=== PATIENT | female | born 1955 | race African-American/Black ===

== ENCOUNTER 2019-11-25 14:15 | Inpatient (IN) | payer MEDICARE, MEDICAID ==
[~2019-11-25] VITALS: Ht 165.1 cm; Wt 64.4 kg
[2019-11-25] MEDS ORDERED: FAMO20TA8 PO (14:22)
[2019-11-25] MEDS ORDERED: AMLO10TA80 MT (14:22)
[2019-11-25] MEDS ORDERED: LIDOCAINE 5% PATCH TOP STA (14:58)
[2019-11-25] MEDS ORDERED: ACETAMINOPHEN 325MG TABLET PO STA (14:58)
[2019-11-25 15:42] LABS: CHLORIDE 107 mEq/L (98-107)
[2019-11-25 15:45] LABS: BASOPHILS % 1.1 % (0.0-2.0); EOSINOPHILS % 0.7 % (0.0-5.0); HEMOGLOBIN. 11.9 g/dL (12.0-16.0); LYMPHOCYTES % 39.4 % (20.0-50.0); MEAN CORPUSCULAR VOLUME 90.9 fL (81.0-99.0); MEAN PLATELET VOLUME 6.9 fl (7.4-10.4); MONOCYTES % 3.2 % (2.0-8.0); NEUTROPHILS % 55.6 % (40.0-76.0); PLATELET 571 x1000/uL (130-400); RED BLOOD CELL COUNT 3.85 mill/uL (4.2-5.4); RED CELL DISTRIBUTION WIDTH 14.8 % (11.6-14.6)
[2019-11-25 16:51] LABS: CLARITY URINE CLOUDY (CLEAR); COLOR URINE YELLOW (YELLOW); KETONES URINE NEGATIVE (NEGATIVE); LEUKOCYTE ESTERASE URINE 2+ (NEGATIVE); NITRITE URINE POSITIVE (NEGATIVE); OCCULT BLOOD URINE TRACE (NEGATIVE); PROTEIN URINE NEGATIVE (NEGATIVE); SPECIFIC GRAVITY URINE 1.018 (1.005-1.030); UROBILINOGEN URINE 0.2 E.U./dL (0.2-1.0)
[2019-11-25] MEDS ORDERED: CEFTRIAXONE 2 G PREMIX 50 ML IV ONE (17:15)
[2019-11-25 21:40] VITALS: BP 173/97
[2019-11-25] MEDS ORDERED: DEXTROSE 50% WATER 50ML SYRINGE IV PRN (22:30)
[2019-11-25] MEDS: AMLODIPINE 10MG TABLET PO SCH (23:07)
[2019-11-25] MEDS: LISINOPRIL 20MG TABLET PO SCH (23:08)
[2019-11-25] MEDS: ACETAMINOPHEN 325MG TABLET PO PRN (23:08)
[2019-11-26] VITALS: BP 173/97
[2019-11-26 04:00] VITALS: BP 117/62
[2019-11-26] MEDS: ACETAMINOPHEN 325MG TABLET PO PRN ×2 (05:18→21:46)
[2019-11-26 06:47] LABS: HEMOGLOBIN 11.9 g/dL (12.0-16.0); MEAN CORPUSCULAR HEMOGLOBIN 31.5 pg (28.0-32.0); MEAN CORPUSCULAR VOLUME 92.8 fL (81.0-99.0); PLATELET 461 x1000/uL (130-400); RED BLOOD CELL COUNT 3.77 mill/uL (4.2-5.4); RED CELL DISTRIBUTION WIDTH 14.5 % (11.6-14.6)
[2019-11-26] MEDS: BLOOD SUGAR DIAGNOSTIC STRIP TEST SCH ×4 (06:48→21:36)
[2019-11-26 06:58] LABS: CHLORIDE 108 mEq/L (98-107)
[2019-11-26 07:07] LABS: LDL CHOLESTEROL 104 mg/dL (5-100)
[2019-11-26 07:10] LABS: HDL CHOLESTEROL 36 mg/dL (40-59)
[2019-11-26 08:00] VITALS: BP 157/81
[2019-11-26] MEDS: AMLODIPINE 10MG TABLET PO SCH (08:38)
[2019-11-26] MEDS: LISINOPRIL 20MG TABLET PO SCH (08:38)
[2019-11-26] MEDS: ENOXAPARIN 40MG/0.4ML SYR SUBCUT SCH (08:38)
[2019-11-26] MEDS: INSULIN LISPRO 100 UNITS/ML SUBCUT SCH ×4 (08:43→21:47)
[2019-11-26] MEDS ORDERED: INSULIN GLARGINE UD 100 UNITS/ML SYR SUBCUT SCH (09:00)
[2019-11-26] MEDS ORDERED: CEFTRIAXONE SODIUM 1 G/VIAL IM ONE (09:00)
[2019-11-26] MEDS: FAMOTIDINE 20MG/2ML VIAL IV SCH ×2 (11:01→17:53)
[2019-11-26] MEDS: INSULIN GLARGINE UD 100 UNITS/ML SYR SUBCUT SCH ×2 (11:15→22:41)
[2019-11-26 12:00] VITALS: BP 110/65
[2019-11-26] MEDS: CEFTRIAXONE 1 G PREMIX 50 ML IV SCH (17:53)
[2019-11-26 20:00] VITALS: BP 128/77
[2019-11-26] MEDS: ATORVASTATIN CALCIUM 20MG TABLET PO SCH (21:46)
[2019-11-27] VITALS: BP 108/81
[2019-11-27 04:00] VITALS: BP 148/85
[2019-11-27] MEDS: ACETAMINOPHEN 325MG TABLET PO PRN ×2 (04:46→21:02)
[2019-11-27] MEDS: BLOOD SUGAR DIAGNOSTIC STRIP TEST SCH ×4 (06:32→21:01)
[2019-11-27 08:00] VITALS: BP 132/74
[2019-11-27] MEDS: ENOXAPARIN 40MG/0.4ML SYR SUBCUT SCH (08:34)
[2019-11-27] MEDS: FAMOTIDINE 20MG/2ML VIAL IV SCH ×2 (08:35→18:07)
[2019-11-27] MEDS: LISINOPRIL 20MG TABLET PO SCH (08:37)
[2019-11-27] MEDS: AMLODIPINE 10MG TABLET PO SCH (08:37)
[2019-11-27] MEDS: INSULIN LISPRO 100 UNITS/ML SUBCUT SCH ×4 (08:48→22:10)
[2019-11-27] MEDS: INSULIN GLARGINE UD 100 UNITS/ML SYR SUBCUT SCH ×2 (09:57→22:09)
[2019-11-27 12:00] VITALS: BP 111/66
[2019-11-27 16:00] VITALS: BP 116/71
[2019-11-27] MEDS: CEFTRIAXONE 1 G PREMIX 50 ML IV SCH (18:07)
[2019-11-27] MEDS ORDERED: ATOR20TA PO (18:36)
[2019-11-27] MEDS ORDERED: INSLIS SUBCUT (18:36)
[2019-11-27] MEDS ORDERED: LISI-604 PO (18:36)
[2019-11-27] MEDS ORDERED: LANTUSUD SUBCUT (18:36)
[2019-11-27] MEDS ORDERED: CEPH-569 MT (18:36)
[2019-11-27 20:00] VITALS: BP 125/65
[2019-11-27] MEDS: ATORVASTATIN CALCIUM 20MG TABLET PO SCH (21:01)
[2019-11-28] VITALS: BP 134/78
[2019-11-28 04:00] VITALS: BP 126/74
[2019-11-28] MEDS: BLOOD SUGAR DIAGNOSTIC STRIP TEST SCH ×4 (07:45→21:36)
[2019-11-28 08:00] VITALS: BP 123/73
[2019-11-28] MEDS: LISINOPRIL 20MG TABLET PO SCH (08:29)
[2019-11-28] MEDS: FAMOTIDINE 20MG/2ML VIAL IV SCH ×2 (08:29→17:00)
[2019-11-28] MEDS: AMLODIPINE 10MG TABLET PO SCH (08:29)
[2019-11-28] MEDS: ENOXAPARIN 40MG/0.4ML SYR SUBCUT SCH (08:29)
[2019-11-28] MEDS: INSULIN LISPRO 100 UNITS/ML SUBCUT SCH ×4 (08:38→21:44)
[2019-11-28] MEDS: ACETAMINOPHEN 325MG TABLET PO PRN (11:08)
[2019-11-28] MEDS: INSULIN GLARGINE UD 100 UNITS/ML SYR SUBCUT SCH ×2 (11:21→21:44)
[2019-11-28 12:00] VITALS: BP 138/78
[2019-11-28] MEDS: CEFTRIAXONE 1 G PREMIX 50 ML IV SCH (17:09)
[2019-11-28] MEDS: ATORVASTATIN CALCIUM 20MG TABLET PO SCH (21:23)
[2019-11-29 04:00] VITALS: BP 120/75
[2019-11-29] MEDS: ACETAMINOPHEN 325MG TABLET PO PRN (04:09)
[2019-11-29] MEDS: BLOOD SUGAR DIAGNOSTIC STRIP TEST SCH ×3 (06:20→17:20)
[2019-11-29] MEDS: INSULIN LISPRO 100 UNITS/ML SUBCUT SCH ×3 (07:50→17:22)
[2019-11-29] MEDS: FAMOTIDINE 20MG/2ML VIAL IV SCH ×2 (09:00→17:00)
[2019-11-29] MEDS: LISINOPRIL 20MG TABLET PO SCH (09:00)
[2019-11-29] MEDS: AMLODIPINE 10MG TABLET PO SCH (09:00)
[2019-11-29] MEDS: ENOXAPARIN 40MG/0.4ML SYR SUBCUT SCH (09:00)
[2019-11-29] MEDS: INSULIN GLARGINE UD 100 UNITS/ML SYR SUBCUT SCH (10:00)
[2019-11-29 16:00] VITALS: BP 125/82
[2019-11-29] MEDS: CEFTRIAXONE 1 G PREMIX 50 ML IV SCH (17:22)
[2019-11-29 19:08] VITALS: BP 130/72
== END 2019-11-29 19:32 | DRG 463 ==
LOC: ER 14:15 → EDBEDREQ 17:18 → 6EST 19:00 → EDBEDREQ 19:06 → EDBEDREQTM 19:06 → ENRESERV 20:11
PROVIDERS: ADMIT Internal Medicine; ATTEND Internal Medicine
DX: N10 Acute pyelonephritis (principal); M54.5 Low back pain; I10 Essential (primary) hypertension; Z20.828 Contact with and (suspected) exposure to other viral communicable diseases; E03.9 Hypothyroidism, unspecified; Z90.49 Acquired absence of other specified parts of digestive tract; Z68.23 Body mass index [BMI] 23.0-23.9, adult; E11.9 Type 2 diabetes mellitus without complications; E44.0 Moderate protein-calorie malnutrition
CPT/HCPCS: 36415; 71045; 74176; 80048; 80053; 80061; 81003; 82962; 83036; 83880; 83970; 84484; 85025; 85027; 87077; 87186; 93005; 96365; 99285; J0696; J1650; J1815; J3490; U0003-CS

== ENCOUNTER 2019-12-08 18:54 | Inpatient (IN) | payer MEDICARE, MEDICAID ==
[~2019-12-08] VITALS: Ht 165.1 cm; Wt 63.5 kg
[~2019-12-08 18:54] MED LIST: AMLO10TA80 MT; ATOR20TA PO; CEPH-569 MT; FAMO20TA8 PO; INSLIS SUBCUT; LANTUSUD SUBCUT; LISI-604 PO
[2019-12-08] MEDS ORDERED: NITROGLYCERIN 0.4MG TABLET SL SL PRN (19:45)
[2019-12-08] MEDS ORDERED: ASPIRIN 81MG TABLET PO ONE (19:45)
[2019-12-08] MEDS ORDERED: ACETAMINOPHEN WITH CODEINE 300/30MG TABLET PO ONE (22:15)
[2019-12-09 01:22] LABS: BASOPHILS % 0.8 % (0.0-2.0); EOSINOPHILS % 1.6 % (0.0-5.0); HEMATOCRIT. 36.6 % (36.0-48.0); HEMOGLOBIN. 12.3 g/dL (12.0-16.0); LYMPHOCYTES % 43.8 % (20.0-50.0); MEAN CORPUSCULAR HEMOGLOBIN 31.1 pg (28.0-32.0); MEAN PLATELET VOLUME 7.7 fl (7.4-10.4); MONOCYTES % 4.3 % (2.0-8.0); NEUTROPHILS % 49.5 % (40.0-76.0); PLATELET 284 x1000/uL (130-400); RED BLOOD CELL COUNT 3.94 mill/uL (4.2-5.4); RED CELL DISTRIBUTION WIDTH 14.7 % (11.6-14.6)
[2019-12-09 01:30] LABS: CHLORIDE 103 mEq/L (98-107)
[2019-12-09] MEDS ORDERED: LORAZEPAM 1MG TABLET PO ONE (02:00)
[2019-12-09 04:47] VITALS: BP 146/70
[2019-12-09] MEDS ORDERED: CLONIDINE 0.1MG TABLET PO PRN (05:45)
[2019-12-09] MEDS ORDERED: ONDANSETRON HCL 4MG/2ML INJ IV PRN (05:45)
[2019-12-09] MEDS ORDERED: DIPHENHYDRAMINE 50MG/ML VIAL IV PRN (05:45)
[2019-12-09] MEDS ORDERED: TOPUD PO (05:45)
[2019-12-09] MEDS ORDERED: MAGNESIUM/ALUMINUM HYDROXIDE/SIMETHICONE 30ML UDC PO PRN (05:45)
[2019-12-09] MEDS ORDERED: DEXT 5%/0.9% NACL 1,000 ML IV ONE (05:45)
[2019-12-09] MEDS ORDERED: IBUP100T53 PO (05:47)
[2019-12-09] MEDS ORDERED: POLY15DR31 EACHEYE (05:50)
[2019-12-09] MEDS ORDERED: DIPH25CA83 PO (05:51)
[2019-12-09] MEDS ORDERED: MULT9LIQ6 PO (05:53)
[2019-12-09] MEDS ORDERED: DEXTROSE 50% WATER 50ML SYRINGE IV PRN (06:00)
[2019-12-09] MEDS: BLOOD SUGAR DIAGNOSTIC STRIP TEST SCH ×4 (06:23→21:00)
[2019-12-09] MEDS: PANTOPRAZOLE 40MG DR TABLET PO SCH (07:10)
[2019-12-09] MEDS: INSULIN LISPRO 100 UNITS/ML SUBCUT SCH ×4 (07:28→20:58)
[2019-12-09 08:00] VITALS: BP 118/91
[2019-12-09] MEDS: ENOXAPARIN 40MG/0.4ML SYR SUBCUT SCH (08:00)
[2019-12-09] MEDS ORDERED: NA PHOS,M-B/NA PHOS,DI-BA ENEMA 118ML PR PRN (08:00)
[2019-12-09] MEDS: ACETAMINOPHEN 325MG TABLET PO PRN ×3 (09:35→22:44)
[2019-12-09 12:00] VITALS: BP 119/69
[2019-12-09] MEDS: LISINOPRIL 20MG TABLET PO SCH (14:15)
[2019-12-09 16:00] VITALS: BP 103/54
[2019-12-09] MEDS: ASPIRIN 81MG TABLET PO SCH (17:50)
[2019-12-09] MEDS: DOCUSATE SODIUM 100MG CAPSULE PO PRN (19:29)
[2019-12-09 20:00] VITALS: BP 122/75
[2019-12-09] MEDS: ATORVASTATIN CALCIUM 20MG TABLET PO SCH (20:57)
[2019-12-09] MEDS: INSULIN GLARGINE UD 100 UNITS/ML SYR SUBCUT SCH (22:36)
[2019-12-10] VITALS: BP 136/74
[2019-12-10] MEDS ORDERED: MORPHINE SULFATE 4 MG/ML CPJ (NOT FOR IM USE) IV PRN (01:00)
[2019-12-10] MEDS: MORPHINE SULFATE 2 MG/ML CPJ (NOT FOR IM USE) IV PRN ×2 (01:19→13:46)
[2019-12-10 04:00] VITALS: BP 137/67
[2019-12-10] MEDS: PANTOPRAZOLE 40MG DR TABLET PO SCH (06:14)
[2019-12-10] MEDS: BLOOD SUGAR DIAGNOSTIC STRIP TEST SCH ×4 (06:20→21:13)
[2019-12-10] MEDS: INSULIN LISPRO 100 UNITS/ML SUBCUT SCH ×4 (06:25→21:18)
[2019-12-10 08:00] VITALS: BP 137/100
[2019-12-10] MEDS: LISINOPRIL 20MG TABLET PO SCH (10:20)
[2019-12-10] MEDS: ASPIRIN 81MG TABLET PO SCH (10:21)
[2019-12-10] MEDS: AMLODIPINE 10MG TABLET PO SCH (10:21)
[2019-12-10] MEDS: ENOXAPARIN 40MG/0.4ML SYR SUBCUT SCH (10:21)
[2019-12-10] MEDS: INSULIN GLARGINE UD 100 UNITS/ML SYR SUBCUT SCH ×2 (10:23→21:18)
[2019-12-10 16:00] VITALS: BP 112/62
[2019-12-10 20:00] VITALS: BP 118/75
[2019-12-10] MEDS: ATORVASTATIN CALCIUM 20MG TABLET PO SCH (20:56)
[2019-12-10] MEDS: ACETAMINOPHEN 325MG TABLET PO PRN (22:34)
[2019-12-11] VITALS: BP 122/85
[2019-12-11] MEDS: ACETAMINOPHEN 325MG TABLET PO PRN ×2 (03:14→20:22)
[2019-12-11 04:00] VITALS: BP 107/66
[2019-12-11] MEDS: BLOOD SUGAR DIAGNOSTIC STRIP TEST SCH ×4 (06:00→21:00)
[2019-12-11] MEDS: PANTOPRAZOLE 40MG DR TABLET PO SCH (06:10)
[2019-12-11] MEDS: INSULIN LISPRO 100 UNITS/ML SUBCUT SCH ×4 (06:12→22:33)
[2019-12-11 08:00] VITALS: BP 122/72
[2019-12-11] MEDS: ASPIRIN 81MG TABLET PO SCH (09:07)
[2019-12-11] MEDS: ENOXAPARIN 40MG/0.4ML SYR SUBCUT SCH (09:08)
[2019-12-11] MEDS: AMLODIPINE 10MG TABLET PO SCH (09:08)
[2019-12-11] MEDS: LISINOPRIL 20MG TABLET PO SCH (09:08)
[2019-12-11] MEDS: LORAZEPAM 0.5MG TABLET PO PRN ×2 (10:53→20:22)
[2019-12-11] MEDS: INSULIN GLARGINE UD 100 UNITS/ML SYR SUBCUT SCH ×2 (10:54→22:33)
[2019-12-11 12:00] VITALS: BP 123/63
[2019-12-11 16:00] VITALS: BP 100/57
[2019-12-11 20:00] VITALS: BP 110/63
[2019-12-12] VITALS: BP 99/56
[2019-12-12 04:00] VITALS: BP 114/69
[2019-12-12] MEDS: BLOOD SUGAR DIAGNOSTIC STRIP TEST SCH ×4 (06:25→21:27)
[2019-12-12] MEDS: INSULIN LISPRO 100 UNITS/ML SUBCUT SCH ×6 (06:27→21:33)
[2019-12-12 08:08] LABS: BASOPHILS % 0.5 % (0.0-2.0); HEMATOCRIT. 36.5 % (36.0-48.0); HEMOGLOBIN. 12.2 g/dL (12.0-16.0); LYMPHOCYTES % 46.7 % (20.0-50.0); MEAN CORPUSCULAR HEMOGLOBIN 30.9 pg (28.0-32.0); MEAN CORPUSCULAR VOLUME 92.4 fL (81.0-99.0); MEAN PLATELET VOLUME 7.5 fl (7.4-10.4); MONOCYTES % 6.2 % (2.0-8.0); NEUTROPHILS % 44.6 % (40.0-76.0); PLATELET 287 x1000/uL (130-400); RED BLOOD CELL COUNT 3.95 mill/uL (4.2-5.4); RED CELL DISTRIBUTION WIDTH 14.3 % (11.6-14.6)
[2019-12-12 08:14] LABS: CHLORIDE 107 mEq/L (98-107)
[2019-12-12] MEDS: ACETAMINOPHEN 325MG TABLET PO PRN ×3 (08:18→23:01)
[2019-12-12 08:26] LABS: CREATINE KINASE 25 IU/L (26-192)
[2019-12-12] MEDS: AMLODIPINE 10MG TABLET PO SCH (09:00)
[2019-12-12] MEDS: LISINOPRIL 20MG TABLET PO SCH (09:00)
[2019-12-12 09:30] VITALS: BP 95/58
[2019-12-12] MEDS: FAMOTIDINE 20MG TABLET PO SCH (09:42)
[2019-12-12] MEDS: ASPIRIN 81MG TABLET PO SCH (09:42)
[2019-12-12] MEDS: ENOXAPARIN 40MG/0.4ML SYR SUBCUT SCH (09:42)
[2019-12-12] MEDS ORDERED: MAGNESIUM GLUCONATE 500MG TABLET PO NR (11:00)
[2019-12-12] MEDS: INSULIN GLARGINE UD 100 UNITS/ML SYR SUBCUT SCH ×3 (11:24→22:00)
[2019-12-12 12:00] VITALS: BP 115/70
[2019-12-12] MEDS: DOCUSATE SODIUM 100MG CAPSULE PO PRN (12:48)
[2019-12-12] MEDS: LORAZEPAM 0.5MG TABLET PO PRN (15:37)
[2019-12-12 20:00] VITALS: BP 103/58
[2019-12-13] VITALS: BP 122/64
[2019-12-13 04:00] VITALS: BP 112/63
[2019-12-13] MEDS: BLOOD SUGAR DIAGNOSTIC STRIP TEST SCH ×4 (05:38→21:06)
[2019-12-13] MEDS: INSULIN LISPRO 100 UNITS/ML SUBCUT SCH ×4 (05:38→21:32)
[2019-12-13 08:00] VITALS: BP 125/84
[2019-12-13] MEDS: ASPIRIN 81MG TABLET PO SCH (09:31)
[2019-12-13] MEDS: AMLODIPINE 10MG TABLET PO SCH (09:31)
[2019-12-13] MEDS: LISINOPRIL 20MG TABLET PO SCH (09:31)
[2019-12-13] MEDS: FAMOTIDINE 20MG TABLET PO SCH (09:31)
[2019-12-13] MEDS: DOCUSATE SODIUM 100MG CAPSULE PO PRN ×2 (09:31→12:51)
[2019-12-13] MEDS: ENOXAPARIN 40MG/0.4ML SYR SUBCUT SCH (09:32)
[2019-12-13] MEDS: INSULIN GLARGINE UD 100 UNITS/ML SYR SUBCUT SCH ×2 (09:33→21:33)
[2019-12-13 12:00] VITALS: BP 123/66
[2019-12-13] MEDS: ACETAMINOPHEN 325MG TABLET PO PRN ×2 (12:51→20:24)
[2019-12-13 16:00] VITALS: BP 126/75
[2019-12-13 20:00] VITALS: BP 100/74
[2019-12-13] MEDS: METOPROLOL TARTRATE 25MG TABLET PO SCH (21:00)
[2019-12-13] MEDS: LORAZEPAM 0.5MG TABLET PO PRN (23:53)
[2019-12-14] VITALS: BP 101/66
[2019-12-14 04:00] VITALS: BP 106/80
[2019-12-14] MEDS: BLOOD SUGAR DIAGNOSTIC STRIP TEST SCH ×2 (07:10→11:32)
[2019-12-14 08:00] VITALS: BP 113/68
[2019-12-14] MEDS: FAMOTIDINE 20MG TABLET PO SCH (08:51)
[2019-12-14] MEDS: DOCUSATE SODIUM 100MG CAPSULE PO PRN (08:51)
[2019-12-14] MEDS: METOPROLOL TARTRATE 25MG TABLET PO SCH (08:58)
[2019-12-14] MEDS: INSULIN LISPRO 100 UNITS/ML SUBCUT SCH ×2 (08:58→12:40)
[2019-12-14] MEDS: AMLODIPINE 10MG TABLET PO SCH (08:59)
[2019-12-14] MEDS: LISINOPRIL 20MG TABLET PO SCH (08:59)
[2019-12-14] MEDS: ENOXAPARIN 40MG/0.4ML SYR SUBCUT SCH (09:06)
[2019-12-14] MEDS: ACETAMINOPHEN 325MG TABLET PO PRN (09:07)
[2019-12-14] MEDS: INSULIN GLARGINE UD 100 UNITS/ML SYR SUBCUT SCH (11:22)
[2019-12-14 12:00] VITALS: BP 162/60
[2019-12-14] MEDS: ASPIRIN 81MG TABLET PO SCH (13:27)
[2019-12-14 15:07] VITALS: BP 162/60
== END 2019-12-14 17:00 | disposition home health service (06) | DRG 203 ==
LOC: ER 18:54 → 8WST 12-09 01:54 → EDBEDREQ 12-09 01:56 → EDBEDREQDT 12-09 01:56 → EDBEDREQTM 12-09 01:56 → ENRESERV 12-09 02:07
PROVIDERS: ADMIT Internal Medicine Nephrology; ATTEND Internal Medicine Nephrology
DX: M94.0 Chondrocostal junction syndrome [Tietze] (principal); E11.9 Type 2 diabetes mellitus without complications; E78.5 Hyperlipidemia, unspecified; I10 Essential (primary) hypertension; N10 Acute pyelonephritis; R74.0 Nonspecific elevation of levels of transaminase and lactic acid dehydrogenase [LDH]; E03.9 Hypothyroidism, unspecified; J44.9 Chronic obstructive pulmonary disease, unspecified; N28.9 Disorder of kidney and ureter, unspecified; E78.00 Pure hypercholesterolemia, unspecified; M54.9 Dorsalgia, unspecified; I49.3 Ventricular premature depolarization; M25.512 Pain in left shoulder; I69.354 Hemiplegia and hemiparesis following cerebral infarction affecting left non-dominant side; Z79.4 Long term (current) use of insulin; Z79.899 Other long term (current) drug therapy; Z59.6 Low income; Y08.89XA Assault by other specified means, initial encounter; Y93.89 Activity, other specified; Y92.89 Other specified places as the place of occurrence of the external cause; Y99.8 Other external cause status
CPT/HCPCS: 36415; 71045; 73030; 76700; 80048; 80053; 80061; 80076; 82550; 82962; 83036; 83735; 83880; 84484; 85025; 93005; 93306; 93970; 97163; 97530; 99285; J1200; J1650; J1815; J2270